=== PATIENT | female | born 1960 | race Caucasian/White ===

== ENCOUNTER 2023-04-07 10:58 | Outpatient (RCR) | payer OTHER ==
[~2023-04-07 10:58] MED LIST: ZOLOFT50 MG PO
== END 2023-04-20 ==
LOC: PT
DX: M25.561 Pain in right knee (principal); Z96.651 Presence of right artificial knee joint

== ENCOUNTER 2023-05-02 08:00 | Outpatient (RCR) | payer OTHER | END 2023-05-09 09:36 | LOC: PT 08:00 | DX: M25.561 Pain in right knee (principal) ==